=== PATIENT | male | born 1940 | race Caucasian/White ===

== ENCOUNTER 2019-09-29 08:26 | Day surgery (SDC) | payer MEDICARE ==
[~2019-09-29 08:26] MED LIST: CEFAZOLIN 1 Gram 1 GM/50 ML BAG IVPB ONE; CEFAZOLIN 2 Gram 2 GM/50 ML BAG IVPB ONE; CELECOXIB 100 MG CAPSULE PO ONE; FAMOTIDINE 20MG TABLET PO ONE; MECLIZINE 25 MG TABLET PO ONE; METOCLOPRAMIDE 10 MG TABLET PO ONE; VANCOMYCIN 1GM/200ML PREMIX 1 GM/200 ML PIGGYBACK IVPB ONE
[2019-09-29] MEDS ORDERED: PROPOFOL 10 MG/ML VIAL IV ONE (08:27)
[2019-09-29] MEDS ORDERED: DEXAMETHASONE 4 MG/ML 1ML VIAL IVP ONE (08:27)
[2019-09-29] MEDS ORDERED: LIDOCAINE 2% MDV (20MG/ML) 20ML VIAL IV ONE (08:27)
[2019-09-29] MEDS ORDERED: ROPIVACAINE HCL (NAROPIN) /PF 5MG/ML 20ML VIAL IV ONE (08:27)
[2019-09-29] MEDS ORDERED: MIDAZOLAM HCL 2MG/2ML VIAL IV ONE (08:27)
[2019-09-29] MEDS ORDERED: RINGERS SOLUTION,LACTATED 1,000 ML IV ONE ×3 (09:05→13:00)
[2019-09-29 09:23] LABS: ABO GROUP A; ANTIBODY SCREEN NEGATIVE (NEGATIVE); RH TYPE NEGATIVE
[2019-09-29] MEDS ORDERED: BUPIVACAINE 0.5% W/EPI MPF 30 ML VIAL SQ ONE (11:15)
[2019-09-29] MEDS ORDERED: TRANEXAMIC ACID 1,000 MG/10 ML ML IU ONE (11:16)
[2019-09-29] MEDS ORDERED: TRANEXAMIC ACID 1,000 MG/10 ML ML IV ONE (11:16)
[2019-09-29] MEDS ORDERED: ONDANSETRON HCL IV 4 MG/2 ML VIAL IVP PRN (12:26)
[2019-09-29] MEDS ORDERED: ACETAMINOPHEN 325 MG TAB PO PRN (12:26)
[2019-09-29] MEDS ORDERED: HYDROCODONE/APAP 10/325 TABLET PO PRN (12:26)
[2019-09-29] MEDS ORDERED: TRAMADOL HCL 50 MG TABLET PO PRN (12:26)
[2019-09-29] MEDS ORDERED: MAGNESIUM HYDROXIDE 30 ML UDC PO PRN (12:26)
[2019-09-29] MEDS ORDERED: DIPHENHYDRAMINE HCL 25 MG CAPSULE PO PRN (12:26)
[2019-09-29] MEDS ORDERED: ZOLPIDEM TARTRATE 5 MG TABLET PO PRN (12:26)
[2019-09-29] MEDS ORDERED: NALOXONE 0.4 MG/1 ML VIAL IVP PRN (12:26)
[2019-09-29] MEDS ORDERED: BISACODYL 10 MG SUPP RC PRN (12:26)
[2019-09-29] MEDS ORDERED: KETOROLAC 30 MG/ML VIAL IVP PRN (12:26)
[2019-09-29] MEDS ORDERED: AL HYDROX/MAG HYDROX 30ML UD PO PRN (12:26)
[2019-09-29] MEDS ORDERED: ACETAMINOPHEN W/ CODEINE 300MG/60MG TABLET PO PRN ×2 (12:26)
[2019-09-29] MEDS ORDERED: HYDROMORPHONE HCL 2 MG/ML VIAL IM PRN (12:26)
[2019-09-29] MEDS: POTASSIUM CHLORIDE/D5-0.9%NACL 20 MEQ/1,000 ML BAG IV SCH ×2 (14:24→21:37)
[2019-09-29] MEDS: GABAPENTIN 300 MG CAPSULE PO SCH ×2 (15:52→21:38)
[2019-09-29] MEDS: HYDROCODONE/APAP 10/325 TABLET PO PRN (17:06)
--- NOTE | 2019-09-29 17:29 | Rehab Evaluation ---
Patient Information - Patient Information Diagnosis: L knee DJD Ordered Treatment: PT Evaluate and Treat Status: Initial Evaluation Surgery: Yes (L TKA) Date of Surgery: 09/29/19 Past Medical/Surgical Hx: PAST MEDICAL/SURGICAL HISTORY Surgery to Affected Area? No Recent Surgery? Past Surgical History BACK SX LUMBAR LEFT SHOULDER SCOPE LEFT KNEE SCOPE C SCOPES PMH - Respiratory Hx Respiratory Disorders No PMH - Cardiovascular Hx Cardiovascular Disorders Yes Hx Hypertension Yes: GOOD CONTROL WITH MEDS Exercise Tolerance Fair Comment: HEPERLIPIDEMIA PMH - Neuro Hx Neurological Disorders Yes Hx Neuropathy Yes PMH - GI Hx Gastrointestinal Disorders Yes PMH - Hx Genitourinary Disorders Yes Hx Prostate Problems Yes: BPH PMH - Endocrine Hx Endocrine Disorders No PMH - Musculoskeletal Hx Musculoskeletal Disorders Yes Hx Arthritis Yes: KNEES PMH - Psych Hx Psychiatric Problems No PMH - Hematology/Oncology Hx Hematology/Oncology No Disorders Premorbid Status: Detail (The patient was independent with all mobility prior to surgery.) Social History: Detail (The patient is staying with daughter following surgery. The daughter's house is a one story house with 5 steps at the enterance with one hand rail. The bathroom is equipped with : a tub/shower combination with grab bars and a hand held shower, standard height toilet with a commode and grab bars. The pt. has a front wheeled walker and 4 pronged cane.) Precautions: [place], Fall, Other (WBAT on the L LE) - Time With Patient Total Time Spent With Patient (Min): 30 Treatment Procedures: Detail (Initial Evaluation, low complexity) Subjective Information - Subjective Information Per Patient (The patient had complaints of L knee pain level 4-5 using the 0-10 pain scale.) Objective Data - Mental Status Patient Orientation: Oriented x3 - Visual Perception Appears within normal limits for therapeutic activities - ROM Not within normal limits (The patient's L knee AROM is limited s/p surgery. All other LE AROM is WNL.) - Strength/Tone Not within normal limits (The patient's LE strength was not tested s/p surgery however was functional.) - Bed Mobility Independent (The patient was independent with supine to and from sit transfer and scooting up in bed.) - Transfers Independent (The patient was independent with sit to and from stand transfer.) - Balance Balance Sitting: Good Balance Standing: Good - Sensation Intact - Gait Detail (The patient ambulated with front wheeled walker WBAT on the L LE with supervision for safety only 100 feet x 1.) Therapy Assessment - Therapy Assessment Detail (The patient was independent with bed mobility and transfers and required supervision for safety with ambulation. PT will continue with one to two sessions to meet inpt. PT goals.) Problem List - Problem List Physical Therapy Problem List: Detail (Decreased L knee AROM and LE strength as to be expected following surgery.) Goals - Goals Physical Therapy Goals: 1) The patient will ambulate on stairs with supervison for safety. 2) The patient will be independent with TKA HEP. Prognosis - Prognosis Good Plan - Plan Physical Therapy Plan: PT 1-2 sessions for gait training on stairs and insruction in TKA HEP.
[2019-09-29] MEDS: CEFAZOLIN 2 Gram 2 GM/50 ML BAG IVPB SCH (18:45)
[2019-09-29] MEDS: DOCUSATE SODIUM 100 MG CAPSULE PO SCH (21:38)
[2019-09-30] MEDS: HYDROCODONE/APAP 10/325 TABLET PO PRN ×3 (00:42→12:48)
[2019-09-30] MEDS: CEFAZOLIN 2 Gram 2 GM/50 ML BAG IVPB SCH ×2 (01:33→09:30)
[2019-09-30] MEDS: POTASSIUM CHLORIDE/D5-0.9%NACL 20 MEQ/1,000 ML BAG IV SCH (05:09)
[2019-09-30 06:54] LABS: HEMATOCRIT 39.2 % (42.0-52.0); HEMOGLOBIN 12.9 gm/dl (14.0-18.0)
[2019-09-30 07:19] LABS: BLOOD UREA NITROGEN 21 mg/dL (8-23); CREATININE 0.9 mg/dL (0.7-1.2); EST GLOMERULAR FILTRATION RATE > 60 mL/min; GLUCOSE,RANDOM 122 mg/dL (74-109)
--- NOTE | 2019-09-30 08:32 | Operative Note ---
DATE OF SURGERY: 09/29/2019 PREOPERATIVE DIAGNOSIS: End-stage arthrosis of the left knee. POSTOPERATIVE DIAGNOSIS: End-stage arthrosis of the left knee. OPERATION: Cemented left total knee arthroplasty using [employer] Legion components with a size 8 cobalt chrome femur, a size 8 stemmed tibia baseplate, a 9 mm lipped tibial insert, and a 35 mm all-plastic patella. STAFF SURGEON: Ho Peña MD ANESTHESIA: Spinal. PREPARATION: Chloraprep. INDIVIDUAL CONSIDERATIONS: None. PROCEDURE: The patient was taken to the operating room, placed supine on the operating room table. He had a successful induction of a spinal anesthetic. The limb was elevated and tourniquet was inflated to 250 mmHg. The patient had a midline approach to the knee. Sharp dissection carried down through skin and subcutaneous tissue. Small veins were coagulated with a Bovie. A medial arthrotomy was performed. The patella was everted and the knee was flexed. The patient had basically exposed bone throughout with huge marginal osteophytes. Fat pad was resected, ACL was sacrificed, and provisional anterior meniscectomies were performed. The capsule was released from the medial proximal tibia. The initial femoral commercial pilot hole was then made freehand. The intramedullary femoral cutting jig was placed. It was cut in 7.0 degrees of valgus and adjusted for rotation and secured with pins for a 10 mm resection. The initial transverse cut was then made. The skin guide was placed in the anterior and posterior commercial pilot holes. It was cut in 3 degrees of external rotation. It was found that a size 8 would be appropriate but I needed to translate it anteriorly 2 mm. The anterior and posterior cuts followed by chamfer cuts were made. Osteophytes removed, and a size 8 trial was placed and found to fit well. The tibia was brought forward, and the remainder of the meniscal remnants removed with a Bovie. The extraarticular tibial cutting jig was placed. It was cut in neutral with a 3-degree AP slope. It was set for a 9 mm resection keyed off the high lateral side and secured with pins. When cutting the tibia, care was taken to preserve the PCL insertion on the tibia. After removing large posterior and medial osteophytes, I could fit a size 8. It was adjusted for rotation and secured with pins. With a 9 mm trial and femoral trial, there was excellent motion and stability. Ligamentous balance and rotation alignment were thought to be normal. Femoral commercial pilot holes were impacted and tibial keel stamp was impacted, and these trial components were removed. The tourniquet was let down briefly to get bleeders posteriorly and then placed back up again. The patient had a very thick patella and roughly 9 mm of bone was removed freehand. I could easily fit a 35 mm patella. The 3 commercial pilot holes were drilled. The knee was then copiously irrigated out with pulsatile Betadine and saline to remove any visual or palpable debris. Bony surfaces were dried prior to cementing with a CarboJet. A size 8 stemmed tibia baseplate was cemented into place followed by impaction of the 9 mm lipped tibial insert followed by cementing in the size 8 Legion femur followed by cementing in the 35 mm patella. The implant surfaces were compressed, excess cement was removed. After the cement had set, there was excellent motion and stability. Ligamentous balance, rotation alignment, and patellofemoral tracking were normal. No lateral release was required. Final irrigation with pulsatile Betadine and saline. Tourniquet was let down. Hemostasis was obtained with a Bovie. The periosteum and soft tissue and skin were infiltrated with 30 mL of 0.5% Marcaine with epinephrine. The capsule was then closed with a running #2 quill, subcu was closed in layers with running 0 quill, skin was closed with adamaris. The patient did receive 1 g of tranexamic acid preoperatively. Then 1 g of tranexamic acid was mixed with 30 mL of saline and injected into the knee through a sterile 18-gauge needle, and a sterile bulky compressive PEDRO-type dressing was applied. The patient tolerated the procedure well. Needle and sponge counts were correct. Estimated blood loss was minimal, and he was taken back to recovery in good condition. There were no complications. HIMA
[2019-09-30] MEDS: DOCUSATE SODIUM 100 MG CAPSULE PO SCH (09:20)
[2019-09-30] MEDS: GABAPENTIN 300 MG CAPSULE PO SCH (09:20)
[2019-09-30] MEDS ORDERED: LORATADINE 10 MG TABLET PO SCH (10:00)
[2019-09-30] MEDS ORDERED: HYDROCHLOROTHIAZIDE 25 MG TABLET PO SCH (10:00)
[2019-09-30] MEDS ORDERED: FERROUS SULFATE 325 MG TAB PO SCH (10:00)
[2019-09-30] MEDS ORDERED: ASPIRIN 81 MG TABEC PO SCH (10:00)
[2019-09-30] MEDS ORDERED: RIVAROXABAN 10 MG TABLET PO SCH (10:00)
--- NOTE | 2019-09-30 10:47 | Rehab Evaluation ---
Patient Information - Patient Information Diagnosis: L knee DJD Ordered Treatment: OT Evaluate and Treat Status: Initial Evaluation Surgery: Yes (L TKA) Date of Surgery: 09/29/19 Past Medical/Surgical Hx: PAST MEDICAL/SURGICAL HISTORY Surgery to Affected Area? No Recent Surgery? Past Surgical History BACK SX LUMBAR LEFT SHOULDER SCOPE LEFT KNEE SCOPE C SCOPES PMH - Respiratory Hx Respiratory Disorders No PMH - Cardiovascular Hx Cardiovascular Disorders Yes Hx Hypertension Yes: GOOD CONTROL WITH MEDS Exercise Tolerance Fair Comment: HEPERLIPIDEMIA PMH - Neuro Hx Neurological Disorders Yes Hx Neuropathy Yes PMH - GI Hx Gastrointestinal Disorders Yes PMH - Hx Genitourinary Disorders Yes Hx Prostate Problems Yes: BPH PMH - Endocrine Hx Endocrine Disorders No PMH - Musculoskeletal Hx Musculoskeletal Disorders Yes Hx Arthritis Yes: KNEES PMH - Psych Hx Psychiatric Problems No PMH - Hematology/Oncology Hx Hematology/Oncology No Disorders Premorbid Status: Detail (The patient was independent with all mobility, meal prep, home mgmt and laundry prior to surgery.) Social History: Detail (The patient is staying with daughter following surgery. The daughter's house is a one story house with 5 steps at the entrance with one hand rail. The bathroom is equipped with : a tub/shower combination with grab bars and a hand held shower, standard height toilet with a commode and grab bars. The pt. has a front wheeled walker and 4 pronged cane. The patient lives in a second floor apartment without an elevator at the entrance. He is planning to obtain a shower seat for use at his daughters and at his house.) Precautions: [place], Fall, Other (WBAT on the L LE) - Time With Patient Total Time Spent With Patient (Min): 35 Treatment Procedures: Detail (OT eval low complexity) Subjective Information - Subjective Information Per Patient Objective Data - Pain Pain Present: Yes (10/23) - Mental Status Patient Orientation: Oriented x3 - Visual Perception Appears within normal limits for therapeutic activities - ROM Within normal limits (Nikolay UE AROM WNL) - Strength/Tone Within normal limits (Nikolay UE strength WNL) - Coordination Appears within normal limits for therapeutic activities - Bed Mobility Independent (Ind with supine to sit.) - Transfers Independent (Ind with sit to stand from EOB and commode heights) - Balance Balance Sitting: Good Balance Standing: Good - Sensation Intact - Gait Detail (Pt able to ambulate in room with 2 wheeled walker and supervision.) - ADL's/IADL's Detail (Pt educated and able to demonstrate learning of modified LE dressing techniques including doffing slipper socks and briefs and donning christie sock (with assist), underwear, pants, socks and tennis shoes. Reviewed shower and kitchen modifications and safety, pt verbalized understanding.) Therapy Assessment - Therapy Assessment Detail (Pt is Ind with modified LE dressing techniques.) Problem List - Problem List Physical Therapy Problem List: Detail (Decreased L knee AROM and LE strength as to be expected following surgery.) Occupational Therapy Problem List: Detail (No current IP OT problems identified.) Goals - Goals Physical Therapy Goals: 1) The patient will ambulate on stairs with supervison for safety. 2) The patient will be independent with TKA HEP. Occupational Therapy Goals: No current IP OT goals identified. Prognosis - Prognosis Good Plan - Plan Physical Therapy Plan: PT 1-2 sessions for gait training on stairs and insruction in TKA HEP. Occupational Therapy Plan: Pt discharged from IP OT at this time. Thank you for this referral.
--- NOTE | 2019-09-30 11:41 | Physical Therapy Tx Note ---
Physical Therapy Tx Note - Treatment Note Tolerated: Good Total Time Spent With Patient: 30 Physical Therapy Tx Note: Detail (The patient was sitting on the edge of bed with OT when PT arrived. The patient had no complaints of pain. The patient ambulated with front wheeled walker a distance of 500 feet x 1 WBAT on the L LE independently. The patient ambulated on 3 steps with use of cane and one railing using proper technique with supervision for safety. The patient completed TKA HEP including seated heel slides, ankle pumps, quad sets, gluteal sets, hamstring sets and SLR. The patient has met all inpt. PT goals and is discharged from inpt. PT.) Physical Therapy Problem List: Detail (Decreased L knee AROM and LE strength as to be expected following surgery.) Physical Therapy Goals: 1) The patient will ambulate on stairs with supervison for safety.(Goal Met) 2) The patient will be independent with TKA HEP. (Goal Met) Physical Therapy Plan: The patient is discharged from inpt. PT The patient is to continue with Home PT.
== END 2019-09-30 13:00 | disposition home health service (06) ==
LOC: SUR 08:26 → MEDSURG 13:31 → SUR 09-30 13:00
PROVIDERS: ATTEND Orthopaedic Surgery
DX: M17.12 Unilateral primary osteoarthritis, left knee (principal); I10 Essential (primary) hypertension; E78.00 Pure hypercholesterolemia, unspecified
CPT/HCPCS: 27447; 01402; 64447; 85018; 85014; 80048; 86900; 86901; 86850; 76942; C1776; J1885; J0690 ×3; J3490 ×2; J2795; J3370; J7120